=== PATIENT | male | born 1960 | race African-American/Black ===

== ENCOUNTER → 2017-04-23 | Outpatient (CLI) | payer OTHER ==
[2014-09-23 10:41] VITALS: BP 98/55
[~2017-04-23] MED LIST: LANS30CA PO; NIFE10CA48 PO; NIFE30TA9 PO
--- NOTE | 2017-04-23 17:38 | RAD ---
Chest x-ray Indication: Shortness of breath. 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 Lungs are clear. No pneumothorax or pleural effusion. Visualized bony thorax is within normal limits. Impression: No acute cardiopulmonary process.
== END | disposition home or self-care (01) ==
LOC: RAD 16:37
PROVIDERS: ATTEND Internal Medicine
DX: M34.9 Systemic sclerosis, unspecified (principal); R06.02 Shortness of breath
CPT/HCPCS: 71020

== ENCOUNTER → 2017-06-06 | Outpatient (CLI) | payer OTHER ==
[2014-09-23 10:41] VITALS: BP 98/55
--- NOTE | 2017-06-06 16:30 | RAD ---
CT chest without contrast 06/06/2017 Clinical indication: Interstitial lung disease, scleroderma. Comparison: Chest radiograph 04/23/2017 Technique: Multiple CT images of the chest were obtained without contrast according to standard protocol. PQRS Compliance Statement: One or more of the following individualized dose reduction techniques were utilized for this examination: 1. Automated exposure control 2. Adjustment of the mA and/or kV according to patient size 3. Use of iterative reconstruction technique Findings: Heart size is normal without significant pericardial effusion the thoracic aorta is normal in caliber with mild calcified atheromatous disease. There are coronary artery calcifications. No axillary, mediastinal or obvious hilar lymphadenopathy, however evaluation is limited absence of intravenous contrast. There is a patulous dilatation throughout the visualized esophagus to the level of the GE junction with intraluminal fluid in the lower portion. The central airways are patent. No pleural effusion or pneumothorax. No suspicious noncalcified pulmonary nodules. Limited images of the upper abdomen: 0.5 cm hepatic segment 2 hypodensity is too small to definitively characterize. Impression: 1. No significant fibrosis or honeycombing. 2. 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 3. Subcentimeter hepatic hypodensity is too small to characterize. Attention on follow-up imaging is recommended.
== END | disposition home or self-care (01) ==
LOC: CT 15:55
PROVIDERS: ATTEND Internal Medicine Critical Care Medicine
DX: J84.9 Interstitial pulmonary disease, unspecified (principal); M34.9 Systemic sclerosis, unspecified
CPT/HCPCS: 71250

== ENCOUNTER → 2017-06-17 | Outpatient (CLI) | payer OTHER ==
[2014-09-23 10:41] VITALS: BP 98/55
--- NOTE | 2017-06-17 11:35 | CARD ---
APPROVED REPORT EXAM: Two-dimensional and M-mode echocardiogram with Doppler and color Doppler. Other Information Quality : Good INDICATION Dyspnea Pulmonary Hypertention DX SOA 2D DIMENSIONS Left Atrium(2D)2.3 (1.6-4.0cm)IVSd1.0 (0.7-1.1cm) Aortic Root(2D)3.4 (2.0-3.7cm)LVDd4.3 (3.9-5.9cm) LVOT Diameter2.0 (1.8-2.4cm)PWd1.0 (0.7-1.1cm) LVDs2.9 (2.5-4.0cm)FS (%) 32.0 % SV49.9 mlLVEF(%)60.4 (>50%) Aortic Valve AoV Peak Pablo.104.0cm/sAoV VTI18.0cm AO Peak GR.4.3mmHgLVOT Peak Pablo.102.2cm/s AO Mean GR.2mmHgAVA (VMAX)2.98cm2 ANASTASIIA (VTI)3.20cm2 Mitral Valve MV E Jfnhhamz40.9cm/sMV DECEL [id number] MV A Ntxftkdk61.9cm/sE/A Ratio0.8 Tricuspid Valve TR P. Qxoainli570oq/sRAP [id number] TR Peak Gr.4cvYmOPNJ9icBz LEFT VENTRICLE The left ventricle is normal size. There is normal left ventricular wall thickness. Left ventricle sy stolic function is low normal. EF 50%. There is normal LV segmental wall motion. Transmitral Doppler flow pattern is Grade I-abnormal relaxation pattern. RIGHT VENTRICLE The right ventricle is normal size. The right ventricular systolic function is normal. ATRIA The left atrium size is normal. The right atrium size is normal. The interatrial septum is intact wit h no evidence for an atrial septal defect or patent foramen ovale as noted on 2-D or Doppler imaging. AORTIC VALVE The aortic valve is normal in structure and function. Doppler and Color Flow revealed no significant aortic regurgitation. There is no significant aortic valvular stenosis. MITRAL VALVE The mitral valve is mildly thickened. There is no evidence of mitral valve prolapse. There is no mitr al valve stenosis. Doppler and Color-flow revealed trace to mild mitral regurgitation. TRICUSPID VALVE The tricuspid valve is normal in structure and function. Doppler and Color Flow revealed trace tricus pid regurgitation. There is no tricuspid valve prolapse or vegetation. There is no tricuspid valve st enosis. PULMONIC VALVE Doppler and Color Flow revealed no pulmonic valvular regurgitation. There is no pulmonic valvular dania nosis. GREAT VESSELS The aortic root is normal in size. The pulmonary artery is normal. PERICARDIAL EFFUSION There is a small to moderate left sided pleural effusion. There is no evidence of significant pericar dial effusion. Critical Notification Critical Value: No <Conclusion> Left ventricle systolic function is low normal. EF 50%. There is normal LV segmental wall motion. There is a small to moderate left sided pleural effusion.
== END | disposition home or self-care (01) ==
LOC: ECHO 09:43
PROVIDERS: ATTEND Internal Medicine Critical Care Medicine
DX: J90 Pleural effusion, not elsewhere classified (principal); R06.00 Dyspnea, unspecified
CPT/HCPCS: 93306